=== PATIENT | female | born 1960 | race Caucasian/White ===

== ENCOUNTER → 2019-03-13 11:17 | Outpatient (BNVA) | payer MEDICARE, MEDICAID, SELFPAY | PROVIDERS: PCP Nurse Practitioner; Visit Provider Nurse Practitioner | DX: E53.8 Deficiency of other specified B group vitamins (principal); G44.309 Post-traumatic headache, unspecified, not intractable; G25.81 Restless legs syndrome; M81.0 Age-related osteoporosis without current pathological fracture; J44.9 Chronic obstructive pulmonary disease, unspecified; M51.36 Other intervertebral disc degeneration, lumbar region; K12.2 Cellulitis and abscess of mouth; K21.9 Gastro-esophageal reflux disease without esophagitis | CPT/HCPCS: 82607 ==

== ENCOUNTER → 2019-04-12 15:02 | Outpatient (BNVA) | payer MEDICARE, MEDICAID, SELFPAY | PROVIDERS: PCP Nurse Practitioner; Visit Provider Nurse Practitioner | DX: M79.641 Pain in right hand (principal); J30.1 Allergic rhinitis due to pollen; K02.9 Dental caries, unspecified; E53.8 Deficiency of other specified B group vitamins | CPT/HCPCS: 73130; 80053; 82607; 84443; 86431 ==

== ENCOUNTER 2019-09-03 20:15 | Emergency (ER) | payer MEDICARE, MEDICAID, SELFPAY ==
--- NOTE | 2019-09-03 20:17 | XRR_ITS ---
PROCEDURE INFORMATION: Exam: XR Right Ankle Exam date and time: 09/03/2019 8:51 PM Age: 59 years old Clinical indication: Injury or trauma; Initial encounter; Blunt trauma; Right; Patient HX: C/O RT ankle pain after fall 09/02/19 TECHNIQUE: Imaging protocol: XR Right ankle. Views: Frontal, lateral, and oblique views. COMPARISON: No relevant prior studies available. FINDINGS: Bones/joints: No tibiotalar joint effusion. No acute fracture. Soft tissues: Lateral malleolar and anterior mild soft tissue swelling. XR/XR ankle RT min 3V* [id number] IMPRESSION: 1. Possible lateral ankle ligamentous sprain. Clinical correlation is recommended. 2. No acute bony injury identified.
[2019-09-03 20:36] VITALS: BP 109/63; PULSE 94; RESP 18; TEMP 36.7; O2SAT 97; BMI 30.2
--- NOTE | 2019-09-03 21:02 | W.ED.LOWEXIN ---
HPI - Extremity Injury (Lower) General: Chief Complaint: Extremity Injury, Lower Stated Complaint: r ankle injury Time Seen by Provider: 09/03/19 21:02 Source: patient Mode of arrival: wheelchair Limitations: no limitations History of Present Illness: HPI Narrative: Patient is a 59-year-old female who presents to ED today for evaluation of a right foot and ankle injury. Patient states she was standing when she went to turn and twisted her right ankle and foot. Patient tells me she has not been able to bear weight on the extremity due to discomfort. She has no other complaints at this time. complaint: ankle injury and foot injury Onset (ago): hour(s) Injury: Left: ankle and foot Type of Injury: inversion Place: home Severity: moderate Relieving factors: immobilization Exacerbating factors: weight bearing and movement Context: other (twisting) Other symptoms: none Review of Systems Musc: Reports: extremity pain (R foot) and joint pain (R ankle) Neuro: Denies: numbness in extremities or sensory changes PFS ED PFSH: Medical History (Updated 09/03/19 @ 21:57 by SHAYNE Pickard) Acid reflux Allergic rhinitis due to pollen COPD (chronic obstructive pulmonary disease) DDD (degenerative disc disease), lumbar Enrolled in chronic care management Hyperlipidemia, unspecified Personal history of smoking Post-concussion headache age 19 Post-menopausal osteoporosis Restless leg Vitamin B 12 deficiency Vitamin D deficiency Surgical History 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 19 History of section History of colonoscopy 2013 History of hysterectomy History of tubal ligation 1993 Family History Father Cancer colon Grandmother Diabetes Seizure Other Heart disease Hypertension Social History Smoking and tobacco status: current every day smoker Smoking risk assessment/counseling performed?: No Alcohol intake: former Desire information about alcohol rehabilitation?: No Counseling given: No Desire information about substance/drug rehabilitation?: No Counseling given: No Caregiver/support person: No Lives independently: Yes Household members: other Housing: House Marital status: Single Number of children: 5 service: No Current occupational status: unemployed and disabled Pets and animals: Yes History of recent travel: No Current gender identity: Female Physical Exam Const: COMMON NORMALS: no acute distress, patient oriented x3, no limitations and alert Extremity: RIGHT LOWER EXTREMITY: Yes foot & digits (pain/swelling localized to lateral malleolus ) Right ankle: Yes neurovascular exam (intact/normal) and Yes foot & digits (TTP noted to 5th metatarsal base and distal 2-4 metatarsals) Neuro: COMMON NORMALS: patient oriented x3, moves all extremities, no focal motor deficits and no sensory deficits noted SENSORIUM/ORIENTATION: Yes alert GAIT: Yes Unable to assess gait Skin: COMMON NORMALS: no rashes or lesions noted GENERAL SKIN EXAM: no rashes or lesions noted Course Vital Signs: Vital signs: Vital Signs Temperature 98.1 F 09/03/19 20:36 Pulse Rate 94 09/03/19 20:36 Respiratory Rate 18 09/03/19 20:36 Blood Pressure 109/63 09/03/19 20:36 Pulse Oximetry 97 09/03/19 20:36 MDM - Extremity Injury (Lower) Imaging Data^: R ankle XR: My impression: no acute fxs visualized R foot XR: My impression: no acute fxs visualized Discharge Plan Discharge Patient Disposition: Home Clinical Impression: Right ankle sprain Qualifiers: Encounter type: initial encounter Involved ligament of ankle: unspecified ligament Qualified Code(s): S93.401A - Sprain of unspecified ligament of right ankle, initial encounter Right foot sprain Qualifiers: Encounter type: initial encounter Qualified Code(s): S93.601A - Unspecified sprain of right foot, initial encounter Condition: Stable Prescriptions: No Action Dimetapp DM Cold-Cough (PE) 1-2.5-5 mg/5 mL solution 20 ml PO Q4H PRN (Reason: allergy symptoms) Qty: 120 RF: 0 albuterol sulfate [Ventolin HFA] 90 mcg/actuation HFA aerosol inhaler 2 puff INHALATION QID PRN (Reason: shortness of breath or wheezing) Qty: 18 RF: 2 alendronate [Fosamax] 70 mg tablet 70 mg PO .weekly Qty: 4 RF: 2 aspirin 81 mg tablet,delayed release (DR/EC) 81 mg PO DAILY Qty: 30 RF: 2 chlorhexidine gluconate 0.12 % mouthwash 15 ml MUCOUS MEM BID Qty: 1500 RF: 2 cholecalciferol (vitamin D3) 10 mcg (400 unit) tablet 800 unit PO DAILY Qty: 60 RF: 2 cyanocobalamin (vitamin B-12) 1,000 mcg/mL solution 100 mcg IM .monthly Qty: 1 RF: 2 flunisolide 25 mcg (0.025 %) spray,non-aerosol 2 spray INTRANASAL DAILY Qty: 25 RF: 2 meloxicam 15 mg tablet 15 mg PO DAILY Qty: 30 RF: 2 omeprazole 20 mg capsule,delayed release(DR/EC) 20 mg PO DAILY Qty: 30 RF: 2 ropinirole 4 mg tablet 4 mg PO .every evening Qty: 30 RF: 2 Discharge Orders: Discharge Order (Routine); Ordered 09/03/19 Ordered By: Suzanna Pal Referrals: Loretta Iraheta, BOTTLE HOUSE PUMPER-C [Primary Care Provider] - Patient Instructions: Ankle Sprain (ED), Foot Sprain (ED), RICE Therapy (ED) Activity Restrictions/Additional Instructions: Please followup with primary care in one week for continued pain. Coding Level of Care Code ED Reprographics Technician for Chg Fwd Exam Expanded Problem Focused
--- NOTE | 2019-09-03 21:11 | XRR_ITS ---
PROCEDURE INFORMATION: Exam: XR Right Foot Complete Exam date and time: 09/03/2019 9:53 PM Age: 59 years old Clinical indication: Injury or trauma; Fall; Initial encounter; Sprain or strain; Foot; Right; Additional info: Trauma/pain, fell TECHNIQUE: Imaging protocol: XR Right foot. Views: Frontal, lateral, and oblique views. COMPARISON: CR XR ankle RT min 3V* [id number] 09/03/2019 8:40 PM FINDINGS: Bones/joints: Medial articular marginal hypertrophy of the 5th proximal phalanx at the metatarsophalangeal joint. No acute bony abnormality identified. Soft tissues: Normal. XR/XR foot RT min 3V* [id number] IMPRESSION: No acute bony injury identified.
[2019-09-03 22:15] VITALS: BP 109/55; PULSE 87; RESP 14; O2SAT 97
== END 2019-09-03 22:16 | disposition home or self-care (01) ==
PROVIDERS: Emergency Provider Physician Assistant; PCP Nurse Practitioner
DX: S93.401A Sprain of unspecified ligament of right ankle, initial encounter (principal); S93.601A Unspecified sprain of right foot, initial encounter; Z79.82 Long term (current) use of aspirin; X50.1XXA Overexertion from prolonged static or awkward postures, initial encounter; J44.9 Chronic obstructive pulmonary disease, unspecified; E78.5 Hyperlipidemia, unspecified; F17.210 Nicotine dependence, cigarettes, uncomplicated
CPT/HCPCS: 12345; 73610; 73630; 99281; 99283; E0114

== ENCOUNTER → 2019-09-10 10:45 | Outpatient (BNVA) | payer MEDICARE, MEDICAID, SELFPAY | PROVIDERS: PCP Nurse Practitioner; Visit Provider Nurse Practitioner | DX: E53.8 Deficiency of other specified B group vitamins (principal); J44.9 Chronic obstructive pulmonary disease, unspecified; M81.0 Age-related osteoporosis without current pathological fracture; K02.9 Dental caries, unspecified; E55.9 Vitamin D deficiency, unspecified; J30.1 Allergic rhinitis due to pollen; G44.309 Post-traumatic headache, unspecified, not intractable; G25.81 Restless legs syndrome; K21.9 Gastro-esophageal reflux disease without esophagitis; M51.36 Other intervertebral disc degeneration, lumbar region; Z87.891 Personal history of nicotine dependence; Z12.39 Encounter for other screening for malignant neoplasm of breast | CPT/HCPCS: 80053; 82607 ==

== ENCOUNTER → 2020-04-03 12:23 | Outpatient (BNVA) | payer MEDICARE, MEDICAID, SELFPAY | PROVIDERS: PCP Nurse Practitioner; Visit Provider Nurse Practitioner | DX: E55.9 Vitamin D deficiency, unspecified (principal); J44.9 Chronic obstructive pulmonary disease, unspecified; E53.8 Deficiency of other specified B group vitamins | CPT/HCPCS: 80053; 82306; 82607 ==

== ENCOUNTER 2020-05-08 12:38 | Outpatient (CLI) | payer MEDICARE, MEDICAID, SELFPAY ==
--- NOTE | 2020-05-08 13:30 | MM_ITS ---
WS: [id number] BILATERAL SCREENING DIGITAL MAMMOGRAM WITH CAD HISTORY: screen COMPARISON: 03/31/2017 and 04/12/2013 Bilateral CC and MLO views submitted. Computer aided detection analyzed. Breast composition: The breasts are heterogeneously dense, which may obscure small masses. No suspici ous masses, microcalcifications or architectural distortion. Asymmetry at 12:00 RIGHT breast remain s table. Benign calcifications in each breast. MM/[place] [id number] IMPRESSION: BI-RADS: 2-Benign FOLLOW UP: 1 Year Follow-up
== END 2020-05-08 12:39 | disposition home or self-care (01) ==
LOC: RADSHAW 12:39
PROVIDERS: PCP Nurse Practitioner; Visit Provider Nurse Practitioner
DX: Z12.31 Encounter for screening mammogram for malignant neoplasm of breast (principal)
CPT/HCPCS: 77067

== ENCOUNTER → 2020-10-07 09:56 | Outpatient (BNVA) | payer MEDICARE, MEDICAID, SELFPAY | PROVIDERS: PCP Nurse Practitioner; Visit Provider Nurse Practitioner | DX: E53.8 Deficiency of other specified B group vitamins (principal); Z13.6 Encounter for screening for cardiovascular disorders; E55.9 Vitamin D deficiency, unspecified; J44.9 Chronic obstructive pulmonary disease, unspecified | CPT/HCPCS: 80053; 80061; 82306; 82607 ==

== ENCOUNTER 2020-11-13 21:25 | Emergency (ER) | payer MEDICARE, MEDICAID, SELFPAY ==
[2020-11-13 21:41] VITALS: BP 128/79; PULSE 105; RESP 18; TEMP 36.9; O2SAT 97
--- NOTE | 2020-11-13 21:59 | ED_ITS ---
HPI - Wound/Laceration General: Chief Complaint: Wound/Laceration Stated Complaint: Claudy Foot Stepped on Screw Time Seen by Provider: 11/13/20 21:31 Source: patient Mode of arrival: ambulatory Limitations: no limitations History of Present Illness: HPI narrative: 60-year-old female states she stepped on a screw couple hours ago. States she has had increasing pain since then. States the screw that is an old screw also was dirty and she is not up-to-date on her tetanus. Denies any fever denies any other injuries. Associated symptoms: Denies chills, fever(s), nausea or vomiting Review of Systems Const: Denies: fever(s), chills, body aches or change in appetite Eyes: Denies: blurry vision or eye discomfort ENMT: Denies: throat pain or dental pain Card: Denies: chest pain Resp: Denies: dyspnea GI: Denies: abdominal pain, nausea, vomiting or diarrhea : Denies: dysuria Musc: Denies: neck pain or back pain Skin/Breast: Denies: rash Neuro: Denies: headache(s) Psych: Denies: depression Varun/Lymph: Denies: easy bruising All/Imm: Denies: urticaria PFSH ED PFSH: Medical History (Updated 11/13/20 @ 21:56 by Richy Cerda MD) Acid reflux Allergic rhinitis due to pollen COPD (chronic obstructive pulmonary disease) DDD (degenerative disc disease), lumbar Enrolled in chronic care management Hyperlipidemia, unspecified Personal history of smoking Post-concussion headache age 19 Post-menopausal osteoporosis Restless leg Vitamin B 12 deficiency Vitamin D deficiency Surgical History 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 19 History of section 1983/1993 History of colonoscopy 2013 History of hysterectomy History of tubal ligation 1993 Family History Father Cancer colon Grandmother Diabetes Seizure Other Heart disease Hypertension Social History Smoking and tobacco status: current every day smoker Smoking risk assessment/counseling performed?: No Alcohol intake: former Desire information about alcohol rehabilitation?: No Counseling given: No Desire information about substance/drug rehabilitation?: No Counseling given: No Caregiver/support person: No Lives independently: Yes Household members: other Housing: House Marital status: Single Number of children: 5 service: No Current occupational status: unemployed and disabled Pets and animals: Yes History of recent travel: No Current gender identity: Female Physical Exam Const: COMMON NORMALS: no acute distress, patient oriented x3 and healthy appearing HENMT: COMMON NORMALS: normocephalic and atraumatic HEAD & SCALP: normocephalic and atraumatic Eye: COMMON NORMALS: Equal, round and reactive pupils present and EOMs intact bilaterally PUPIL: Yes Equal, round and reactive pupils present Neck/C-Spine: COMMON NORMALS: full ROM and supple Chest: COMMONS NORMALS: normal inspection of the chest and normal palpation of entire chest wall Resp: COMMON NORMALS: normal respiratory effort, No retractions, No use of accessory muscles and clear to auscultation bilaterally AUSCULTATION: clear to auscultation bilaterally Cardio: COMMON NORMALS: regular rate, regular rhythm and No murmurs present (Cardio) RATE: regular rate RHYTHM: regular rhythm GI: COMMON NORMALS: Normal to inspection, nondistended, normoactive bowel sounds present, Soft to palpation, non-tender and no masses PALPATION: Yes Soft to palpation Extremity: COMMON NORMALS: normal to inspection and full ROM NARRATIVE EXTREMITY EXAM: Small puncture wound to left dorsum of foot no obvious foreign body noted Neuro: COMMON NORMALS: patient oriented x3, moves all extremities and no focal motor deficits Psych: COMMON NORMALS: mental status grossly normal, Normal thought process present and cooperative THOUGHT PROCESS: Normal thought process present Skin: COMMON NORMALS: no rashes or lesions noted and no wounds GENERAL SKIN EXAM: no rashes or lesions noted Course Vital Signs: Vital signs: Vital Signs Temperature 98.5 F 11/13/20 21:41 Pulse Rate 105 H 11/13/20 21:41 Respiratory Rate 18 11/13/20 21:41 Blood Pressure 128/79 11/13/20 21:41 Pulse Oximetry 97 11/13/20 21:41 MDM - Wound/Laceration MDM Narrative: Medical decision making narrative: Patient presents with puncture wound to left foot. She has no signs of obvious foreign body will place on antibiotics and give her tetanus and have her follow-up with podiatry. She is return if worsening. She understands agrees to plan. Discharge Plan Discharge Patient Disposition: Home Clinical Impression: Puncture wound of foot, left Qualifiers: Encounter type: initial encounter Qualified Code(s): S91.332A - Puncture wound without foreign body, left foot, initial encounter Condition: Stable Prescriptions: New Naprosyn 500 mg tablet 500 mg PO BID PRN (Reason: pain) Qty: 20 RF: 0 Augmentin 875-125 mg tablet 1 tab PO BID Qty: 14 RF: 0 No Action albuterol sulfate [Ventolin HFA] 90 mcg/actuation HFA aerosol inhaler 2 puff INHALATION QID PRN (Reason: shortness of breath or wheezing) Qty: 18 RF: 5 alendronate [Fosamax] 70 mg tablet 70 mg PO .weekly Qty: 4 RF: 5 aspirin 81 mg tablet,delayed release (DR/EC) 81 mg PO DAILY Qty: 30 RF: 5 cetirizine [Zyrtec] 10 mg tablet 10 mg PO DAILY 30 Days Qty: 30 RF: 2 chlorhexidine gluconate 0.12 % mouthwash 15 ml MUCOUS MEM BID Qty: 1500 RF: 2 cyanocobalamin (vitamin B-12) [Vitamin B-12] 1,000 mcg tablet extended release 1,000 mcg PO DAILY Qty: 30 RF: 5 flunisolide 25 mcg (0.025 %) spray,non-aerosol 2 spray INTRANASAL DAILY Qty: 25 RF: 5 magnesium oxide 400 mg magnesium tablet 400 mg PO BID Qty: 60 RF: 5 meloxicam 15 mg tablet 15 mg PO DAILY Qty: 30 RF: 5 ropinirole 4 mg tablet 4 mg PO .every evening Qty: 30 RF: 5 triamcinolone acetonide 0.1 % cream 1 applic topical BID Qty: 80 RF: 0 venlafaxine [Effexor XR] 37.5 mg capsule,extended release 24hr 37.5 mg PO DAILY Qty: 30 RF: 5 nystatin 100,000 unit/gram powder 1 applic topical BID Qty: 60 RF: 2 omeprazole 20 mg capsule,delayed release(DR/EC) 20 mg PO DAILY Qty: 30 RF: 5 cholecalciferol (vitamin D3) 25 mcg (1,000 unit) capsule 25 mcg PO DAILY Qty: 30 RF: 2 Discharge Orders: Discharge ED (Routine); Ordered 11/13/20 Ordered By: Richy Cerda Referrals: Jovan Warren DPM [Physician] - 1-3 days Loretta Iraheta, CARTOGRAPHY SUPERVISOR-C [Primary Care Provider] - Discharge Diet: Advance as tolerated Discharge Activity: Resume usual activity Patient Instructions: Puncture Wound in the Foot (ED) Coding Level of Care Code ED Shuttle Preparation Supervisor for Clara Bradshaw
[2020-11-13] MEDS: tetanus-dipt-pertussis 0.5 mL SDV IM (22:12)
[2020-11-13] MEDS: HYDROcodone-acetaminophen 5-325 mg Tablet 1 TAB PO (22:14)
--- NOTE | 2020-11-14 10:59 | DCPLANNER ---
manager star had message to schedule a follow up appointment for patient with ortho. manager star called the ortho clinic, spoke with Fouzia, gave clinic patients information. manager star was told that patients information would be printed and reviewed. Clinic will call patient with appointment information.
--- NOTE | 2020-11-27 15:33 | DCPLANNER ---
industrial engineering manager called the ortho clinic to confirm if an appointment had been scheduled for patient. industrial engineering manager spoke with Livia, was told that patient denied the appointment.
== END 2020-11-13 22:26 | disposition home or self-care (01) ==
LOC: ER 21:57
PROVIDERS: Emergency Provider Emergency Medicine; PCP Nurse Practitioner
DX: S91.332A Puncture wound without foreign body, left foot, initial encounter (principal); W45.0XXA Nail entering through skin, initial encounter; Z79.82 Long term (current) use of aspirin; J44.9 Chronic obstructive pulmonary disease, unspecified; E78.5 Hyperlipidemia, unspecified; F17.210 Nicotine dependence, cigarettes, uncomplicated; Z23 Encounter for immunization
CPT/HCPCS: 90471; 90715; 99282

== ENCOUNTER → 2020-11-19 11:19 | Outpatient (BNVA) | payer MEDICARE, MEDICAID, SELFPAY | PROVIDERS: PCP Nurse Practitioner; Visit Provider Nurse Practitioner | DX: S91.332A Puncture wound without foreign body, left foot, initial encounter (principal); X58.XXXA Exposure to other specified factors, initial encounter | CPT/HCPCS: 73630 ==

== ENCOUNTER → 2021-04-14 10:25 | Outpatient (BNVA) | payer MEDICARE, MEDICAID, SELFPAY | PROVIDERS: PCP Nurse Practitioner; Visit Provider Nurse Practitioner | DX: Z13.6 Encounter for screening for cardiovascular disorders (principal); J44.9 Chronic obstructive pulmonary disease, unspecified | CPT/HCPCS: 80053; 80061 ==

== ENCOUNTER → 2021-07-08 11:52 | Outpatient (BNVA) | payer MEDICARE, MEDICAID, SELFPAY | PROVIDERS: PCP Nurse Practitioner; Visit Provider Nurse Practitioner | DX: J41.0 Simple chronic bronchitis (principal); M81.0 Age-related osteoporosis without current pathological fracture; Z87.891 Personal history of nicotine dependence; J30.1 Allergic rhinitis due to pollen; K02.9 Dental caries, unspecified; E55.9 Vitamin D deficiency, unspecified; E53.8 Deficiency of other specified B group vitamins; G25.81 Restless legs syndrome; G44.309 Post-traumatic headache, unspecified, not intractable; B37.9 Candidiasis, unspecified; K21.9 Gastro-esophageal reflux disease without esophagitis | CPT/HCPCS: 71046 ==

== ENCOUNTER → 2022-01-18 14:35 | Outpatient (BNVA) | payer MEDICARE, MEDICAID, SELFPAY | PROVIDERS: PCP Nurse Practitioner; Visit Provider Nurse Practitioner | DX: E55.9 Vitamin D deficiency, unspecified (principal); F41.8 Other specified anxiety disorders; J41.0 Simple chronic bronchitis; E53.8 Deficiency of other specified B group vitamins; Z13.6 Encounter for screening for cardiovascular disorders | CPT/HCPCS: 80053; 80061; 81000; 82306; 84443 ==

== ENCOUNTER → 2022-07-22 11:19 | Outpatient (BNVA) | payer MEDICARE, MEDICAID, SELFPAY | PROVIDERS: PCP Nurse Practitioner; Visit Provider Nurse Practitioner | DX: E53.8 Deficiency of other specified B group vitamins (principal); E78.1 Pure hyperglyceridemia; M81.0 Age-related osteoporosis without current pathological fracture | CPT/HCPCS: 80053; 80061; 82306; 82607 ==

== ENCOUNTER 2022-08-18 16:17 | Outpatient (CLI) | payer MEDICARE, MEDICAID, SELFPAY ==
--- NOTE | 2022-08-18 17:00 | CT_ITS ---
WS: [id number] LDCT LUNG CANCER SCREENING TECHNIQUE: Noncontrast CT of the chest with coronal and sagittal reformatted images. CLINICAL INFORMATION: F17.210 - Nicotine dependence, cigarettes, uncomplicated COMPARISON: None. DLP: 87.10 mGy.cm DIvol: Mean CTDIvol: 2.20 (mGy) All CT scans at [facility] use at least one of these dose optimization techniques: automat ed exposure control; mA and/or kV adjustment per patient size (includes targeted exams where dose is matched to clinical indication); or iterative reconstruction. FINDINGS: Slightly hazy RIGHT middle lobe nodule measuring 7 mm. Small subcentimeter nodular opacitie s RIGHT upper lobe along the fissure. RIGHT upper lobe nodule measuring 5 mm. Pleural nodule RIGHT lo wer lobe measuring 5 mm. A few tiny subpleural opacities LEFT lower lobe. Pleural nodule LEFT lower l obe measuring 5 mm. Moderate chronic emphysematous changes. Aortic calcification. Coronary calcification. No mediastinal or hilar lymphadenopathy. No axillary lymphadenopathy. Normal GE junction. Partially visualized hepat omegaly with diffuse fatty infiltration. Adrenal glands are normal. Mild thoracic kyphosis. CT/CT lung screening [id number] IMPRESSION: 7 mm RIGHT middle lobe nodule. No prior comparisons. Recommend 6 mo nth follow-up with CT. LUNG-RADS: 3-Probably Benign FOLLOW UP: 6 Month LDCT
== END 2022-08-18 16:18 | disposition home or self-care (01) ==
LOC: RAD 16:17
PROVIDERS: PCP Nurse Practitioner; Visit Provider Nurse Practitioner
DX: Z12.2 Encounter for screening for malignant neoplasm of respiratory organs (principal); F17.210 Nicotine dependence, cigarettes, uncomplicated
CPT/HCPCS: 71271

== ENCOUNTER → 2022-08-19 12:41 | Outpatient (BNVA) | payer MEDICARE, MEDICAID, SELFPAY | PROVIDERS: PCP Nurse Practitioner; Visit Provider Nurse Practitioner Family | DX: L30.4 Erythema intertrigo (principal); L57.8 Other skin changes due to chronic exposure to nonionizing radiation; L70.0 Acne vulgaris; B00.1 Herpesviral vesicular dermatitis; L81.4 Other melanin hyperpigmentation; D22.5 Melanocytic nevi of trunk; L85.3 Xerosis cutis; L57.0 Actinic keratosis; L70.8 Other acne; H02.60 Xanthelasma of unspecified eye, unspecified eyelid; H02.64 Xanthelasma of left upper eyelid; Z85.828 Personal history of other malignant neoplasm of skin; Z72.0 Tobacco use | CPT/HCPCS: 17000; 17003; 99214 ==

== ENCOUNTER → 2022-11-23 14:52 | Outpatient (BNVA) | payer MEDICARE, MEDICAID, SELFPAY | PROVIDERS: PCP Nurse Practitioner; Visit Provider Nurse Practitioner Family | DX: L30.4 Erythema intertrigo (principal); L57.8 Other skin changes due to chronic exposure to nonionizing radiation; Z85.828 Personal history of other malignant neoplasm of skin; L81.4 Other melanin hyperpigmentation; D22.5 Melanocytic nevi of trunk; L85.3 Xerosis cutis; L57.0 Actinic keratosis; H02.60 Xanthelasma of unspecified eye, unspecified eyelid; H02.64 Xanthelasma of left upper eyelid; L02.821 Furuncle of head [any part, except face] | CPT/HCPCS: 17000; 99214 ==

== ENCOUNTER → 2023-01-17 11:50 | Outpatient (BNVA) | payer MEDICARE, MEDICAID, SELFPAY | PROVIDERS: PCP Nurse Practitioner; Visit Provider Nurse Practitioner | DX: E55.9 Vitamin D deficiency, unspecified (principal); E78.1 Pure hyperglyceridemia | CPT/HCPCS: 80053; 80061; 82306; 82607 ==

== ENCOUNTER 2023-06-14 10:28 | Outpatient (CLI) | payer MEDICARE, MEDICAID, SELFPAY ==
--- NOTE | 2023-06-14 10:30 | MM_ITS ---
WS: [id number] Bilateral screening 3D tomosynthesis digital mammogram, 06/14/2023 Clinical Data: Z12.31 - Encounter for screening mammogram for malignant ... Comparison: 05/08/2020, 03/31/2017, 04/12/2013, 09/10/2010. Findings: The breast parenchymal pattern shows heterogeneous density. No spiculated masses or clustered calcifi cations are seen. There are no secondary signs of carcinoma. MM/[place] [id number] Impression: 1. Negative bilateral mammogram unchanged. 2. Recommend annual screening mammograms. BIRADS: 1-Negative FOLLOW UP: 1 Year Follow-up The CAD steel checker was used.
== END 2023-06-14 10:29 | disposition home or self-care (01) ==
LOC: MOBLMAM 10:32
PROVIDERS: PCP Nurse Practitioner; Visit Provider Nurse Practitioner
DX: Z12.31 Encounter for screening mammogram for malignant neoplasm of breast (principal)
CPT/HCPCS: 77063; 77067

== ENCOUNTER → 2023-07-11 11:35 | Outpatient (BNVA) | payer MEDICARE, MEDICAID, SELFPAY | PROVIDERS: PCP Nurse Practitioner; Visit Provider Nurse Practitioner | DX: E78.1 Pure hyperglyceridemia; E53.8 Deficiency of other specified B group vitamins; E55.9 Vitamin D deficiency, unspecified | CPT/HCPCS: 80053; 80061; 82306; 82607 ==

== ENCOUNTER → 2023-12-08 14:47 | Outpatient (BNVA) | payer MEDICARE, MEDICAID, SELFPAY | PROVIDERS: PCP Nurse Practitioner; Visit Provider Nurse Practitioner Family | DX: D48.5 Neoplasm of uncertain behavior of skin (principal); L02.223 Furuncle of chest wall; L57.0 Actinic keratosis; L57.8 Other skin changes due to chronic exposure to nonionizing radiation; Z85.828 Personal history of other malignant neoplasm of skin; L81.4 Other melanin hyperpigmentation; D22.5 Melanocytic nevi of trunk; F17.200 Nicotine dependence, unspecified, uncomplicated; L85.3 Xerosis cutis; H02.60 Xanthelasma of unspecified eye, unspecified eyelid; H02.64 Xanthelasma of left upper eyelid | CPT/HCPCS: 11102; 17000; 99214 ==

== ENCOUNTER → 2023-12-26 11:44 | Outpatient (BNVA) | payer MEDICARE, MEDICAID, SELFPAY | PROVIDERS: PCP Nurse Practitioner; Visit Provider Nurse Practitioner | DX: E78.1 Pure hyperglyceridemia | CPT/HCPCS: 80053; 80061; 84443 ==

== ENCOUNTER → 2023-12-27 08:56 | Outpatient (BNVA) | payer MEDICARE, MEDICAID, SELFPAY | PROVIDERS: PCP Nurse Practitioner; Visit Provider Dermatology | DX: L57.0 Actinic keratosis (principal); C44.319 Basal cell carcinoma of skin of other parts of face | CPT/HCPCS: 13132; 17311; 99213 ==

== ENCOUNTER → 2024-03-07 11:13 | Outpatient (BNVA) | payer MEDICARE, MEDICAID, SELFPAY | PROVIDERS: PCP Nurse Practitioner; Visit Provider Nurse Practitioner Family | DX: L24.4 Irritant contact dermatitis due to drugs in contact with skin (principal); L57.8 Other skin changes due to chronic exposure to nonionizing radiation; Z08 Encounter for follow-up examination after completed treatment for malignant neoplasm; Z85.828 Personal history of other malignant neoplasm of skin; T21.21XA Burn of second degree of chest wall, initial encounter; X58.XXXA Exposure to other specified factors, initial encounter | CPT/HCPCS: 17000; 99214 ==

== ENCOUNTER → 2024-04-12 13:34 | Outpatient (BNVA) | payer MEDICARE, MEDICAID, SELFPAY | PROVIDERS: PCP Nurse Practitioner; Visit Provider Nurse Practitioner Family | DX: L24.4 Irritant contact dermatitis due to drugs in contact with skin (principal); Z08 Encounter for follow-up examination after completed treatment for malignant neoplasm; Z85.828 Personal history of other malignant neoplasm of skin; T21.21XA Burn of second degree of chest wall, initial encounter; X58.XXXA Exposure to other specified factors, initial encounter | CPT/HCPCS: 99213 ==

== ENCOUNTER 2024-06-19 08:57 | Outpatient (CLI) | payer MEDICARE, MEDICAID, SELFPAY ==
--- NOTE | 2024-06-19 09:20 | MM_ITS ---
WS: [id number] VIEWS: MLO and CC views both breasts. 3D digital tomosynthesis is also included in this exam. Comparison made with prior exam of 09/10/2010, 04/13/2015, 03/31/2017, 05/08/2020, 06/14/2023.. Findings: The breasts are heterogeneously dense, which may obscure small masses. No sign of suspicious mass, tumor calcification or architectural distortion. MM/MM scr BI tomosynthesis [id number] Impression: BI-RADS: 2 - Benign FOLLOW-UP: 1 Year Follow-up This mammogram was also analyzed by the Computer Aided Detection System R2 Imag e Woodworking Machine Setter.
== END 2024-06-19 08:58 | disposition home or self-care (01) ==
PROVIDERS: PCP Nurse Practitioner; Visit Provider Nurse Practitioner
DX: Z12.31 Encounter for screening mammogram for malignant neoplasm of breast (principal); E55.9 Vitamin D deficiency, unspecified; E78.1 Pure hyperglyceridemia; R92.333 Mammographic heterogeneous density, bilateral breasts
CPT/HCPCS: 77063; 77067; 80053; 80061; 82306

== ENCOUNTER → 2024-09-18 14:27 | Outpatient (BNVA) | payer MEDICARE, MEDICAID, SELFPAY | PROVIDERS: PCP Nurse Practitioner; Visit Provider Nurse Practitioner Family | DX: L81.4 Other melanin hyperpigmentation (principal); L57.8 Other skin changes due to chronic exposure to nonionizing radiation; Z08 Encounter for follow-up examination after completed treatment for malignant neoplasm; Z85.828 Personal history of other malignant neoplasm of skin | CPT/HCPCS: 99213 ==

== ENCOUNTER → 2025-01-16 08:48 | Outpatient (BNVA) | payer MEDICARE, MEDICAID, SELFPAY | PROVIDERS: PCP Nurse Practitioner; Visit Provider Nurse Practitioner | DX: E78.1 Pure hyperglyceridemia (principal); E53.8 Deficiency of other specified B group vitamins; E55.9 Vitamin D deficiency, unspecified | CPT/HCPCS: 80053; 80061; 82306; 82607; 84443; 85025 ==